=== PATIENT | female | born 1955 | race Caucasian/White ===

== ENCOUNTER 2023-08-19 10:48 | Emergency (ER) | payer MEDICAID ==
[~2023-08-19] VITALS: Ht 167.6 cm; Wt 65.9 kg
[2023-08-19] MEDS ORDERED: IBUP-862 PO (11:59)
[2023-08-19 12:13] VITALS: BP 163/84; PULSE 62; RESP 16; TEMP 97.8; O2SAT 97
== END 2023-08-19 12:15 | disposition home or self-care (01) ==
LOC: ER 10:48
DX: S93.602A Unspecified sprain of left foot, initial encounter (principal); X50.1XXA Overexertion from prolonged static or awkward postures, initial encounter; Y93.89 Activity, other specified; Y92.89 Other specified places as the place of occurrence of the external cause; Y99.8 Other external cause status
CPT/HCPCS: 73630; 99283